=== PATIENT | male | born 1985 | race African-American/Black ===

== ENCOUNTER 2023-02-20 16:49 | Emergency (ER) | payer OTHER, SELFPAY ==
[2023-02-20 17:04] VITALS: BP 120/76; PULSE 86; RESP 16; TEMP 36.8; O2SAT 97; BMI 26.6
--- NOTE | 2023-02-20 17:19 | ED_ITS ---
HPI - Male Genitourinary General Date Seen: 02/20/23 Chief complaint: Urogenital Problems, Male Stated complaint: STD Time Seen by Provider: 02/20/23 17:00 Source: patient Mode of arrival: ambulatory Limitations: no limitations History of Present Illness HPI Narrative: Patient is a 37-year-old male with no pertinent medical problems presenting to emergency department for concern for STD. Says he is sexually active with a girl 1 week ago and then noticed 3 days ago he started having itching and pain around his scrotum, anus, and penis. States he had unprotected vaginal intercourse with this woman. He has had gonorrhea before he states and felt like this. Does state this time does not seem as bad. Does note he noticed a white discharge coming from his urethra. Not noticed any rashes or lesions on his scrotum or penis. He states he would also like to be checked for HIV. Related Data Previous Rx's Medication Instructions Recorded doxycycline hyclate 100 mg capsule 100 mg PO BID #14 caps 02/20/23 Allergies Allergy/AdvReac Type Severity Reaction Status Date / Time No Known Drug Allergies Allergy Verified 02/20/23 17:00 Review of Systems Narrative: Negative unless stated in HPI PFSH PFSH Social History Smoking Status: Former smoker Do you use any of these nicotine containing products: None Second hand tobacco smoke exposure: Yes How often do you have a drink containing alcohol: never AUDIT-C Alcohol total score: 0 service: No Exam Narrative: Exam Narrative: Const: Well-nourished, Well-developed, in mild distress Eyes: PERRL, no conjunctival injection, and symmetrical lids HENT: Atraumatic external nose and ears. Moist mucous membranes. : Nontender scrotum and penis. Nontender testicles with normal cremasteric reflex, no rashes seen on the anus, scrotum, penis. MSK:Extremities w/o deformity, Normal Active ROM Skin: Warm, Dry. No rashes or lesions. Neuro: Normal Muscle tone, No focal neurological deficits. Psych: Awake, Alert, & Oriented x3. Appropriate mood and affect. Const: Vital Signs, click to edit/add: Vital Signs - 24 hr 02/20/23 17:04 Temperature 98.3 F Pulse Rate [Pulse Oximeter] 86 Respiratory Rate 16 Blood Pressure [Ri t Upper Arm] 120/76 Pulse Oximetry 97 Oxygen Delivery Me thod Room Air Course Vital Signs Vital signs: Initial Vital Signs Temperature 98.3 F 02/20/23 17:04 Temperature Source Temporal Artery Scan 02/20/23 17:04 Pulse Rate 86 02/20/23 17:04 Pulse Rhythm Regular 02/20/23 17:04 Pulse Strength 3+ Normal 02/20/23 17:04 Respiratory Rate 16 02/20/23 17:04 Blood Pressure 120/76 02/20/23 17:04 Blood Pressure Mean 90 02/20/23 17:04 Blood Pressure Position Sitting 02/20/23 17:04 Pulse Oximetry 97 02/20/23 17:04 Oxygen Delivery Method Room Air 02/20/23 17:04 Vital Signs Temperature 98.3 F 02/20/23 17:04 Pulse Rate 86 02/20/23 17:04 Respiratory Rate 16 02/20/23 17:04 Blood Pressure 120/76 02/20/23 17:04 Pulse Oximetry 97 02/20/23 17:04 Oxygen Delivery Method Room Air 02/20/23 17:04 Temperature 98.3 F 02/20/23 17:04 Pulse Rate 86 02/20/23 17:04 Respiratory Rate 16 02/20/23 17:04 Blood Pressure 120/76 02/20/23 17:04 Pulse Oximetry 97 02/20/23 17:04 Oxygen Delivery Method Room Air 02/20/23 17:04 Medications Administered Medications: Discontinued Medications Generic Name Dose Route Start Last Admin Trade Name Freq PRN Reason Stop Dose Admin Ceftriaxone Sodium 500 mg 02/20/23 18:12 02/20/23 18:24 Ceftriaxone 500 Mg Vial IM 02/20/23 18:13 500 mg ONCE ONE Administration Lidocaine HCl 1 ml 02/20/23 18:12 02/20/23 18:24 Lidocaine 1% 5 Ml (Pf) 5 Ml Vial IM 1 ml DIRECTED PRN Administration Pain MDM - Male Genitourinary MDM Narrative Medical decision making narrative: Patient is a 37-year-old male presenting for an STD check. Based on his symptoms it does sound like gonorrhea and chlamydia could easily be a possibility. Patient also like to be tested for HIV in this test was ordered. When he does states his testicular pain the way he describes it some support acute scrotal pain an overall appearance does not appear like he has testicular torsion in our not believe ultrasound imaging is necessary. Patient would like to be called with the results of this test. 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 He is agreeable to this plan. Patient did test positive for chlamydia and was called with these results. He picked up his antibiotic prescription. Lab Data Labs: Lab Results 02/20/23 02/20/23 Range/Units 17:15 17:30 C.trachomatis Ampl DNA DETECTED A (No Detected) HIV 1&2 Ab/P24 Ag 4thGn Negative (Negative) N.gonorrhoeae Ampl DNA NOT DETECTED (No Detected) Discharge Plan Discharge Clinical Impression: Chlamydia Patient Disposition: Home, Self-Care Condition: Stable Instructions: Sexually Transmitted Diseases (ED) Additional Instructions: Will call you with the results of the gonorrhea/chlamydia/HIV test. If chlamydia or gonorrhea test is positive continuous pickling line pickler the prescription from the pharmacy tomorrow. Follow-up with the primary care provider If symptoms persist. Prescriptions: New doxycycline hyclate 100 mg capsule 100 mg PO BID Qty: 14 0RF Follow Up/Referrals: Provider,Not a Local [Primary Care Provider] - Stand Alone Forms: [employer] Info Instructions
[2023-02-20] MEDS: LIDOCAINE 1% 5 ml (pf) 5 ML VIAL 1 ML IM (18:24)
[2023-02-20] MEDS: cefTRIAXone 500 MG VIAL IM (18:24)
[2023-02-20 18:41] LABS: HIV 1/2/P24 Combo Screen* Negative (Negative)
[2023-02-20 19:21] LABS: GC DNA Amplified* NOT DETECTED (No Detected)
[2023-02-20 22:32] LABS: Chlamydia DNA Amplified* DETECTED (No Detected)
== END 2023-02-20 18:30 | disposition home or self-care (01) ==
PROVIDERS: Emergency Provider Student in an Organized Health Care Education/Training Program
DX: A74.9 Chlamydial infection, unspecified (principal)
CPT/HCPCS: 36415; 86703; 87491; 87591; 96372; 99282; 99283; J0696